=== PATIENT | female | born 1940 | race African-American/Black ===

== ENCOUNTER 2017-01-24 17:01 | Inpatient (IN) | payer OTHER ==
[~2017-01-24] VITALS: Ht 160 cm; Wt 60.1 kg
[~2017-01-24 17:01] MED LIST: ALLO100T PO; AMLO5TAB88 PO; ASPI-1035 PO; ATOR80TA76 PO; CINA30 PO; SEVE800T8 PO; TRAM50TA PO
[2017-01-24] MEDS ORDERED: SODIUM CHLORIDE 0.9% 500 ML IV ONE (17:31)
[2017-01-24] MEDS ORDERED: VANCOMYCIN 1 G PREMIX 200 ML IV ONE (17:45)
[2017-01-24] MEDS ORDERED: PIPERACILLIN/TAZ 3.375G PREMIX 50 ML IV ONE (17:45)
[2017-01-24 18:30] LABS: INR 1.1; PROTHROMBIN TIME 10.9 sec
[2017-01-24 18:37] LABS: CARBON DIOXIDE 25 mEq/L (21-32); CHLORIDE 104 mEq/L (98-107)
[2017-01-24 18:40] LABS: EOSINOPHILS % 0.5 % (0.0-5.0); HEMATOCRIT. 37.5 % (36.0-48.0); HEMOGLOBIN. 12.5 g/dL (12.0-16.0); LYMPHOCYTES % 21.8 % (20.0-50.0); MEAN CORPUSCULAR HEMOGLOBIN 32.2 pg (28.0-32.0); MEAN CORPUSCULAR VOLUME 96.9 fL (81.0-99.0); MEAN PLATELET VOLUME 11.1 fl (7.4-10.4); MONOCYTES % 13.3 % (2.0-8.0); NEUTROPHILS % 63.4 % (40.0-76.0); PLATELET 88 x1000/uL (130-400); RED BLOOD CELL COUNT 3.87 mill/uL (4.2-5.4); RED CELL DISTRIBUTION WIDTH 17.1 % (11.6-14.6)
[2017-01-24 18:42] LABS: CLARITY URINE CLEAR (CLEAR); COLOR URINE YELLOW (YELLOW); GLUCOSE URINE NEGATIVE (NEGATIVE); KETONES URINE NEGATIVE (NEGATIVE); LEUKOCYTE ESTERASE URINE NEGATIVE (NEGATIVE); NITRITE URINE NEGATIVE (NEGATIVE); OCCULT BLOOD URINE TRACE (NEGATIVE); PH URINE 8.5 (4.5-8.0); PROTEIN URINE 2+ (NEGATIVE); SPECIFIC GRAVITY URINE 1.011 (1.005-1.030); UROBILINOGEN URINE 0.2 E.U./dL (0.2-1.0)
[2017-01-24] MEDS ORDERED: MAGNESIUM/ALUMINUM HYDROXIDE/SIMETHICONE 30ML UDC PO PRN (20:45)
[2017-01-24] MEDS ORDERED: GUAIFENESIN 200MG/10ML SUGAR FREE UDC PO PRN (20:45)
[2017-01-24] MEDS ORDERED: ACETAMINOPHEN 325MG TABLET PO PRN (20:45)
[2017-01-24] MEDS ORDERED: CLONIDINE 0.1MG TABLET PO PRN (20:45)
[2017-01-24] MEDS ORDERED: VANCOMYCIN 1 G PREMIX 200 ML IV SCH (20:45)
[2017-01-24] MEDS ORDERED: IPRATROPIUM/ALBUTEROL 0.5-3(2.5)MG/3ML NEB INH PRN (20:45)
[2017-01-24] MEDS ORDERED: DIPHENHYDRAMINE 50MG/ML VIAL IV PRN (20:45)
[2017-01-24] MEDS ORDERED: LORAZEPAM 2MG/ML CPJ IV PRN (20:45)
[2017-01-24] MEDS ORDERED: DOCUSATE SODIUM 100MG CAPSULE PO PRN (20:45)
[2017-01-24] MEDS ORDERED: TRAMADOL 50MG TABLET PO PRN (20:45)
[2017-01-24] MEDS ORDERED: MORPHINE SULFATE 2 MG/ML CPJ (NOT FOR IM USE) IV PRN (20:45)
[2017-01-24] MEDS ORDERED: ONDANSETRON HCL 4MG/2ML VIAL IV PRN (20:45)
[2017-01-24] MEDS ORDERED: DEXTROSE 50% WATER 50ML SYRINGE IV PRN (20:45)
[2017-01-24] MEDS ORDERED: NITROGLYCERIN 0.4MG TABLET SL SL PRN (20:45)
[2017-01-24] MEDS: BLOOD SUGAR DIAGNOSTIC STRIP TEST SCH (21:00)
[2017-01-24] MEDS: INSULIN LISPRO 100 UNITS/ML SUBCUT SCH (21:00)
[2017-01-24 21:43] VITALS: BP 139/74
[2017-01-24 22:40] LABS: CREATINE KINASE MB FRACTION 3.6 ng/mL (0.5-3.6); TROPONIN I 0.05 ng/mL (0.00-0.04)
[2017-01-24] MEDS ORDERED: ZOLPIDEM TARTRATE 5MG TABLET PO PRN (22:45)
[2017-01-24 23:00] VITALS: BP 139/74
[2017-01-25 04:02] VITALS: BP 127/87
[2017-01-25 07:14] LABS: CREATINE KINASE MB FRACTION 1.8 ng/mL (0.5-3.6); TROPONIN I 0.05 ng/mL (0.00-0.04)
[2017-01-25] MEDS: BLOOD SUGAR DIAGNOSTIC STRIP TEST SCH ×3 (07:40→17:40)
[2017-01-25 08:00] VITALS: BP 113/67
[2017-01-25] MEDS: INSULIN LISPRO 100 UNITS/ML SUBCUT SCH ×3 (08:10→17:47)
[2017-01-25 08:32] LABS: CARBON DIOXIDE 22 mEq/L (21-32); CHLORIDE 108 mEq/L (98-107)
[2017-01-25] MEDS: SEVELAMER CARBONATE 800 MG TABLET PO SCH ×3 (08:39→18:35)
[2017-01-25] MEDS ORDERED: ASPIRIN 325MG EC TABLET PO SCH (09:00)
[2017-01-25] MEDS ORDERED: PANTOPRAZOLE SODIUM 40 MG/VIAL IV SCH (09:00)
[2017-01-25] MEDS ORDERED: FOLIC ACID/VITAMIN B COMP W-C TABLET PO SCH (09:00)
[2017-01-25] MEDS ORDERED: METOPROLOL TARTRATE 25MG TABLET PO SCH (09:00)
[2017-01-25 09:25] LABS: HEMATOCRIT. 35.9 % (36.0-48.0); HEMOGLOBIN. 11.9 g/dL (12.0-16.0); MEAN CORPUSCULAR HEMOGLOBIN 32.4 pg (28.0-32.0); MEAN CORPUSCULAR VOLUME 97.3 fL (81.0-99.0); MEAN PLATELET VOLUME 10.5 fl (7.4-10.4); PLATELET 74 x1000/uL (130-400); RED BLOOD CELL COUNT 3.69 mill/uL (4.2-5.4); RED CELL DISTRIBUTION WIDTH 16.7 % (11.6-14.6)
[2017-01-25 13:00] VITALS: BP 112/65
[2017-01-25 16:00] VITALS: BP 118/60
[2017-01-25 17:09] LABS: ATYPICAL LYMPHOCYTES 1; PLATELET ESTIMATE DECREASED
[2017-01-25 17:19] VITALS: BP 118/60
[2017-01-25 20:00] VITALS: BP 148/73
== END 2017-01-25 20:25 | disposition short-term general hospital (02) | DRG 871 ==
LOC: ER 17:15 → 7WST 20:11 → SUPCPDRO 20:35 → 7WST 01-25 12:44
PROVIDERS: ADMIT Internal Medicine; ATTEND Internal Medicine
DX: A41.9 Sepsis, unspecified organism (principal); N18.6 End stage renal disease; E44.0 Moderate protein-calorie malnutrition; I12.0 Hypertensive chronic kidney disease with stage 5 chronic kidney disease or end stage renal disease; Z99.2 Dependence on renal dialysis; E11.22 Type 2 diabetes mellitus with diabetic chronic kidney disease; D69.6 Thrombocytopenia, unspecified; Z79.899 Other long term (current) drug therapy; Z79.82 Long term (current) use of aspirin; Z68.23 Body mass index [BMI] 23.0-23.9, adult
CPT/HCPCS: 36415; 51702; 70450; 71010; 80053; 80061; 81001; 82550; 82553; 82962; 83036; 83605; 84484; 85025; 85610; 87040; 87086; 93005; 93970; 96365; 96367; 99285; C9113; J2543; J3370; J7030